=== PATIENT | female | born 1965 | race Caucasian/White ===

== ENCOUNTER 2020-12-22 18:28 | Outpatient (REF) | payer BC, SELFPAY ==
[2020-12-22 19:08] LABS: HCT 39.3 % (36.0-46.0); HGB 13.3 g/dL (11.2-15.7); MCHC 33.8 % (32.0-36.0); MCV 88.7 fL (80-95); MPV 9.4 fL (8.0-11.0); Platelet Count 277 10^3/uL (130-400); RBC 4.43 10^6/uL (3.93-5.22); RDW-SD 42.5 fL; WBC 4.99 10^3/uL (4.4-10.8)
[2020-12-22 19:48] LABS: TSH (W/Ref FT4) 1.38 uIU/mL (0.36-3.74)
[2020-12-23 17:39] LABS: Estradiol 67 pg/mL (See Note)
[2020-12-23 17:52] LABS: FSH 8.6 mIU/mL (See Note)
== END 2020-12-22 18:29 | disposition home or self-care (01) ==
LOC: NCHCN 18:28
PROVIDERS: PCP Family Medicine; Visit Provider Nurse Practitioner Family
DX: N92.4 Excessive bleeding in the premenopausal period (principal)
CPT/HCPCS: 85027; 82670; 83001; 84443

== ENCOUNTER 2022-08-25 17:29 | Outpatient (REF) | payer BC, SELFPAY ==
--- NOTE | 2022-08-25 16:00 | PAPFT_PTH ---
PATIENT: Jennifer Walker LOC: NCN #:[id number] AGE/SX: 57/F ROOM: RE08/25/[address]: José Miguel Oliver : 1965 BED: DIS: 08/25/2022 SPEC #: [id number] RECD: 08/26/22 12:44 STATUS: KATE REGlenys #: [id number] RAMON: 08/25/22 16:[address]: Samira Oliverlaide DEPT: [facility] Cytology RECD BY: Fernanda Skaggs ENTERED: 08/26/22 12:44 SP TYPE: PAPFT OTHR DR: Eliud Abebe Tissues: 1 - CX/ENDOCX FOR PAP SMEARS Procedures: PAP THIN PREP/[facility] Screening HPV DNA PROBE Comments: [id number]
[2022-08-25 21:05] LABS: Abs Immature Grans 0.02 10^3/uL (0.0-0.06); Absolute Basophil Count 0.03 10^3/uL (0.0-0.2); Absolute Eosinophil Count 0.07 10^3/uL (0.0-0.7); Absolute Lymphocyte Count 1.12 10^3/uL (1.2-3.4); Absolute Monocyte Count 0.39 10^3/uL (0.1-0.8); Absolute Neutrophil Count 4.17 10^3/uL (1.2-6.7); Basophils % 0.5; Eosinophils % 1.2; HGB 13.1 g/dL (11.2-15.7); Immature Grans % 0.3; Lymphocytes % 19.3; MCH 29.2 pg (27.0-33.0); MCHC 32.8 % (32.0-36.0); MCV 89 fL (80-95); MPV 9.4 fL (8.0-11.0); Monocytes % 6.7; Platelet Count 352 10^3/uL (130-400); RBC 4.48 10^6/uL (3.93-5.22); RDW 12.6 % (11.7-14.6); RDW-SD 41.3 fL
[2022-08-25 21:50] LABS: Hemoglobin A1C 5.6 % (<5.7)
[2022-08-25 22:11] LABS: ALT 31 U/L (14-59); AST 28 U/L (15-37); Albumin 4.1 g/dL (3.4-5.0); Alkaline Phosphatase 83 U/L (46-116); Anion Gap 7.1 mmol/L (3-11); BUN 7 mg/dL (7-18); Bilirubin, Total 0.5 mg/dL (0.2-1.0); CO2 26.9 mmol/L (21.0-32.0); CREATININE 0.8 mg/dL (0.55-1.02); Chloride 102 mmol/L (98-107); Estimated GFR 86.42 (mL/min/1.73m2); Glucose 95 mg/dL (74-106); Potassium 4.1 mmol/L (3.5-5.1); Sodium 136 mmol/L (136-145); TSH 1.82 uIU/mL (0.36-3.74); Total Protein 7.6 g/dL (6.4-8.2)
== END 2022-08-25 17:30 | disposition home or self-care (01) ==
LOC: NCHCN 17:29
PROVIDERS: PCP Family Medicine; Visit Provider Nurse Practitioner Family
DX: R00.2 Palpitations (principal); Z13.1 Encounter for screening for diabetes mellitus; Z12.4 Encounter for screening for malignant neoplasm of cervix; Z01.419 Encounter for gynecological examination (general) (routine) without abnormal findings; Z11.51 Encounter for screening for human papillomavirus (HPV)
CPT/HCPCS: 80053; 88142; 83036; 84443; 85025; 87624

== ENCOUNTER 2025-02-22 00:23 | Outpatient (CLI) | payer BC, SELFPAY ==
--- NOTE | 2025-02-22 | DI.RAD_ITS ---
Exam(s) XR KNEE LT 3V AP,LAT,JOEL EXAM: XR KNEE LT 3V AP,LAT,JOEL CLINICAL HISTORY: Chronic pain of lt knee, M25.562; other chronic pain, G89.29. TECHNIQUE: 2D digital imaging was performed. COMPARISON: No exams were available for comparison FINDINGS: 3 views h no evidence of fracture but there is a joint effusion signifying internal derangement. There are mild degenerative changes in the medial compartment. Bone density appears normal. Incidentally noted is a benign-appearing eccentric peripherally sclerotic bone lesion in the distal diaphysis of the femur. Probably fibrous cortical defect. IMPRESSION: No acute osseous findings but there is a knee joint effusion signifying probable internal derangement. If clinically indicated can be further studied with MRI. There is also benign-appearing bone lesion in the distal 3rd of the femur. DATA REPOSITORY: RADIATION DOSE DELIVERED:
== END 2025-02-22 00:43 ==
PROVIDERS: PCP Family Medicine; Visit Provider Physician Assistant
DX: M25.562 Pain in left knee (principal); R93.89 Abnormal findings on diagnostic imaging of other specified body structures
CPT/HCPCS: 73562